=== PATIENT | male | born 1985 | race African-American/Black ===

== ENCOUNTER 2019-03-18 22:29 | Emergency (ER) | payer SELFPAY ==
[2019-03-18 22:44] VITALS: BP 126/87; PULSE 71; TEMP 98.3; BMI 27.3
--- NOTE | 2019-03-19 00:01 | PDOC ---
History of Present Illness - General Chief Complaint: Respiratory Stated Complaint: COUGH/SORE THROAT History Source: Patient Exam Limitations: No Limitations - History of Present Illness Initial Comments: 03/18/19 23:55 Patient is a 33 year old male seasonal allergies, heart murmur, excision lipoma c/o cough x 7 days with itchy thorat and tightness in the chest. States is cough nonproductive. (+) nasal congestion, (+) itchy throat. States he gets allergies about early spring which goes away with claritin. Has been taking ricola candy for the cough without relief. Denies fever, chills. PMD: Dr. Flores PMHX: as above PSOCHX: occ wine, neg cig, neg durg GENERAL/CONSTITUTIONAL: No fever or chills. No weakness. No weight change. HEAD, EYES, EARS, NOSE AND THROAT: No change in vision. No ear pain or discharge. No sore throat. CARDIOVASCULAR: No chest pain or shortness of breath. RESPIRATORY: (+) cough, wheezing, or hemoptysis. GASTROINTESTINAL: No nausea, vomiting, diarrhea or constipation. No rectal bleeding. GENITOURINARY: No dysuria, frequency, or change in urination. MUSCULOSKELETAL: No joint or muscle swelling or pain. No neck or back pain. SKIN AND BREASTS: No rash or easy bruising. NEUROLOGIC: No headache, vertigo, loss of consciousness, or loss of sensation. PSYCHIATRIC: No depression or anxiety. ENDOCRINE: No increased thirst. No abnormal weight change. HEMATOLOGIC/LYMPHATIC: No anemia, easy bleeding, or history of blood clots. ALLERGIC/IMMUNOLOGIC: No hives or skin allergy. No latex allergy. GENERAL: The patient is awake, alert, and fully oriented, in mild distress, occasional coughing. HEAD: Normal with no signs of trauma. EYES: Pupils equal, round and reactive to light, extraocular movements intact, sclera anicteric, conjunctiva clear. ENT: Ears normal, nares patent, oropharynx clear without exudates. Moist mucous membranes. NECK: Normal range of motion, supple without lymphadenopathy, JVD, or masses. LUNGS: Breath sounds equal, clear to auscultation bilaterally. No wheezes, and no crackles. HEART: Regular rate and rhythm, normal S1 and S2 without murmur, rub. ABDOMEN: Soft, nontender, normoactive bowel sounds. No guarding, no rebound. No masses. EXTREMITIES: Normal range of motion, no edema. No clubbing or cyanosis. No cords, erythema, or tenderness. NEUROLOGICAL: Cranial nerves II through XII grossly intact. Normal speech, normal gait. PSYCH: Normal mood, normal affect. SKIN: Warm, Dry, normal turgor, no rashes or lesions noted. Past History - Past Medical History Allergies/Adverse Reactions: Allergies Allergy/AdvReac Type Severity Reaction Status Date / Time No Known Allergies Allergy Verified 03/18/19 22:39 Home Medications: Ambulatory Orders Albuterol Sulfate Inhaler - [Ventolin HFA Inhaler -] 2 inh PO Q4H #1 inh Benzonatate [Tessalon Pearls -] 100 mg PO TID #21 capsule 03/19/19 Prednisone [Deltasone] 40 mg PO DAILY #6 tablet 03/19/19 Cardiac Disorders: Yes (heart murmur) COPD: No - Suicide/Smoking/Psychosocial Hx Smoking History: Never smoked *Physical Exam - Vital Signs Last Vital Signs Temp Pulse Resp BP Pulse Ox 98.3 F 71 20 126/87 98 03/18/19 22:39 03/18/19 22:39 03/18/19 22:39 03/18/19 22:39 03/18/19 22:39 Medical Decision Making - Medical Decision Making 03/18/19 23:55 Patient is a 33 year old male seasonal allergies, heart murmur, excision lipoma c/o cough x 7 days with itchy thorat. States is cough nonproductive. (+) nasal congestion, (+) itchy throat. States he gets allergies about early spring which goes away with claritin. Has been taking ricola candy for the cough without relief. Denies fever, chills. DDX: Bronchitis - cough, ALLERGIC cough Benadryl, prednisone, neb treatments. Reassess EKG: SR at rate 79, NAD, first-degree AV block Patient feels improved coughing less. I discussed the physical exam findings, ancillary test results and final diagnoses with the patient. I answered all of the patient's questions. The patient was satisfied with the care received and felt comfortable with the discharge plan and treatment plan. The Patient agrees to follow up with the primary care physician within 24-72 hours. *DC/Admit/Observation/Transfer Diagnosis at time of Disposition: Acute bronchitis Qualifiers: Bronchitis organism: unspecified organism Qualified Code(s): J20.9 - Acute bronchitis, unspecified - Discharge Dispostion Disposition: HOME Condition at time of disposition: Stable - Prescriptions Prescriptions: Albuterol Sulfate Inhaler - [Ventolin HFA Inhaler -] 2 inh PO Q4H #1 inh Benzonatate [Tessalon Pearls -] 100 mg PO TID #21 capsule Prednisone [Deltasone] 40 mg PO DAILY #6 tablet - Referrals Referrals: Sandra Cerrato MD [Primary Care Provider] - - Patient Instructions Printed Discharge Instructions: DI for Acute Bronchitis Additional Instructions: Your Discharge Instructions: You must call primary care physician within 24 hours to arrange follow-up. Return to the Emergency Department with any new, persistent or worsening symptoms, for fever, chills, SOB, dizziness or any other concerning changes that may occur. - Post Discharge Activity
[2019-03-19] MEDS ORDERED: ALBUTEROL SO4 0.083% IH SOL 2.5 MG/3 ML VIAL.NEB. NEB ONE ×4 (00:02→01:41)
[2019-03-19] MEDS ORDERED: ALBUTEROL SO4 2.5/IPRATROPIUM 0.5 INH SOL 3 ML VIAL.NEB. NEB ONE (00:02)
[2019-03-19] MEDS ORDERED: predniSONE 20 MG TABLET (UD) PO ONE (00:02)
[2019-03-19] MEDS ORDERED: diphenhydrAMINE HCL 25 MG CAPSULE (FP) PO ONE ×2 (00:02→00:25)
[2019-03-19] MEDS ORDERED: predniSONE 20 MG TABLET (UD) ONE (00:25)
[2019-03-19] MEDS ORDERED: guaiFENesin/CODEINE 10 ML UNIT-DOSE CUPS PO ONE (01:01)
[2019-03-19] MEDS ORDERED: guaiFENesin/CODEINE 5 ML UNIT-DOSE CUPS PO ONE (01:41)
--- NOTE | 2019-03-19 17:29 | EKG ---
Test Reason : Blood Pressure : / mmHG Vent. Rate : 069 BPM Atrial Rate : 069 BPM P-R Int : 258 ms QRS Dur : 096 ms QT Int : 366 ms P-R-T Axes : 055 071 056 degrees QTc Int : 392 ms SINUS RHYTHM WITH 1ST DEGREE A-V BLOCK OTHERWISE NORMAL ECG NO PREVIOUS ECGS AVAILABLE Confirmed by NICO CAPONE MD ([id number]) on 03/19/2019 5:28:55 PM Referred By: Confirmed By:NICO CAPONE MD
== END 2019-03-19 02:15 | disposition home or self-care (01) ==
LOC: JER 22:29
PROC: 3E0F7GC Introduction of Other Therapeutic Substance into Respiratory Tract, Via Natural or Artificial Opening (ICD-10-PCS; principal; 2019-03-18)
DX: J20.9 Acute bronchitis, unspecified (principal)
CPT/HCPCS: 93005; 93010; 99282-25

== ENCOUNTER 2022-10-31 20:15 | Emergency (ER) | payer SELFPAY ==
[2022-10-31 20:30] VITALS: BP 133/77; PULSE 78; RESP 18; TEMP 97.7; BMI 24.0
[2022-10-31] MEDS ORDERED: KETOROLAC TROMETHAMINE 30 MG/1 ML VIAL IM ONE (20:57)
[2022-10-31] MEDS ORDERED: KETOROLAC TROMETHAMINE 30 MG/1 ML VIAL ONE (21:03)
== END 2022-10-31 21:27 | disposition home or self-care (01) ==
LOC: JERFT 20:15
PROC: 3E0233Z Introduction of Anti-inflammatory into Muscle, Percutaneous Approach (ICD-10-PCS; principal; 2022-10-31)
DX: M54.50 Low back pain, unspecified (principal); M79.672 Pain in left foot
CPT/HCPCS: 73630-TC-LT; 99284-25

== ENCOUNTER 2023-07-25 08:13 | Emergency (ER) | payer SELFPAY ==
[2023-07-25 08:25] VITALS: BP 127/75; PULSE 92; RESP 18; TEMP 98.3; BMI 22.4
[2023-07-25] MEDS ORDERED: ACETAMINOPHEN 325 MG TABLET (FP) PO ONE (08:47)
[2023-07-25] MEDS ORDERED: ACETAMINOPHEN 325 MG TABLET (FP) ONE (08:59)
== END 2023-07-25 10:52 | disposition home or self-care (01) ==
LOC: JER 08:13
DX: R05.9 Cough, unspecified (principal); R51.9 Headache, unspecified; M79.10 Myalgia, unspecified site; R11.10 Vomiting, unspecified; J10.1 Influenza due to other identified influenza virus with other respiratory manifestations; Z20.822 Contact with and (suspected) exposure to COVID-19
CPT/HCPCS: 0241U-QW; 71046-TC-FY; 99284-25